=== PATIENT | female | born 1980 | race Two or more races ===

== ENCOUNTER 2019-03-23 10:15 | Emergency (ER) | payer SELFPAY ==
[~2019-03-23] VITALS: Ht 154.9 cm; Wt 81.6 kg
[2019-03-23 10:26] VITALS: BP 112/75
[2019-03-23] MEDS ORDERED: Ketorolac 60mg Inj IM ONE (10:45)
[2019-03-23] MEDS ORDERED: IBUPROFEN600 MG ORAL (10:49)
[2019-03-23 11:00] VITALS: BP 125/76
--- NOTE | 2019-03-23 11:00 | NUR ---
ER DISCHARGE NOTE: Pt was seen due to lower backpain. Patient is cleared to be discharged per ERMD, pt is aox4, on room air, with stable vital signs. pt was given dc and prescription instructions, pt was able to verbalize understanding, pt id band removed . pt is able to ambulate with steady gait. pt took all belongings.
--- NOTE | 2019-03-23 11:03 | Emergency Room Report ---
History of Present Illness General Chief Complaint: Back Pain-No Injury Source: Patient Present Illness HPI Patient 39-year-old female presents after increased low back pain. Patient reports having gradual onset of low back pain. She reports having this for several weeks. Pain is worse with right-sided flexion. She denies any recent trauma. She denies any other similar symptoms in the past. She reports having this with some left-sided buttock discomfort. She denies any bowel or bladder dysfunction. She reports having normal urination as well as normal bowel movements. She states she is currently taking answer contraceptives. She denies any chest pain or shortness of breath. Allergies: Coded Allergies: No Known Allergies (Unverified , 03/23/19) Patient History Past Medical History: see triage record Last Menstrual Period: N/A Now: No : 10 Para: 6 Reviewed Nursing Documentation: PMH: Agreed; PSxH: Agreed Nursing Documentation-PM Past Medical History: No Stated History Hx Cardiac Problems: No - Hypercholesterolemia Review of Systems All Other Systems: negative except mentioned in HPI Physical Exam Vital Signs Date Time Temp Pulse Resp B/P (MAP) Pulse Ox O2 Delivery O2 Flow Rate FiO2 03/23/19 10:26 98.1 88 15 112/75 95 Room Air General Appearance: well appearing, no apparent distress, alert, GCS 15, Chronically Ill Head: normocephalic, atraumatic ENT: hearing grossly normal, normal voice Neck: full range of motion, supple Respiratory: lungs clear, normal breath sounds, no respiratory distress, speaking full sentences Cardiovascular #1: normal peripheral pulses, regular rate, rhythm Gastrointestinal: normal inspection, soft Musculoskeletal: digits/nails normal, gait/station normal, decreased range of mation, other - no spinal tenderness Neurologic: normal inspection, alert, oriented x3, responsive, 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 May need MRI if symptoms worsen. Return if worse. Santo Lundberg MD Mar 23, 2019 11:03
== END 2019-03-23 12:30 | disposition home or self-care (01) ==
LOC: EMR 12:14
DX: M54.5 Low back pain (principal); E78.00 Pure hypercholesterolemia, unspecified
CPT/HCPCS: 96372; 99283

== ENCOUNTER 2020-03-02 12:26 | Emergency (ER) | payer MEDICAID ==
[~2020-03-02] VITALS: Ht 157.5 cm; Wt 77.1 kg
[~2020-03-02 12:26] MED LIST: IBUPROFEN600 MG ORAL
[2020-03-02 12:40] VITALS: BP 124/75
--- NOTE | 2020-03-02 13:03 | Emergency Room Report ---
History of Present Illness General Chief Complaint: Dizziness Present Illness HPI 40-year-old female presents to the emergency department complaining of progressive lethargy with intermittent palpitations and anxiousness. Patient is also reporting transient episodes of dizziness that she described as imbalance when she gets up too quickly. She reports that the symptoms last no more than several seconds. Patient denies headache. She does report body aches. She reports only significant past medical history is high cholesterol. She denies night sweats or changes in weight. She denies visual changes, blurry vision, tinnitus, nausea or vomiting. She reports intermittent discomfort in her throat but denies pain. Patient reports sometimes "discomfort with swallowing " She denies inability to swallow. She denies cough, SOB, syncope or weakness. Pt. denies paresthesias. She denies fevers or chills. she denies CP. She denies abdominal pain, constipation or diarrhea. She does report a rash on her abdomen. She denies swelling of the lips or tongue. She denies vertigo. 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 Patient History Past Medical History: see triage record Past Surgical History: none Pertinent Family History: none Last Menstrual Period: 02/09/2020 Now: No Immunizations: UTD Reviewed Nursing Documentation: PMH: Agreed; PSxH: Agreed Nursing Documentation-PMH Hx Cardiac Problems: No - Hypercholesterolemia Review of Systems All Other Systems: negative except mentioned in HPI Physical Exam Vital Signs Date Time Temp Pulse Resp B/P (MAP) Pulse Ox O2 Delivery O2 Flow Rate FiO2 03/02/20 12:34 98.4 90 18 124/75 (91) 97 Room Air Sp02 EP Interpretation: reviewed, normal General Appearance: no apparent distress, alert, GCS 15, non-toxic Head: normocephalic, atraumatic Eyes: bilateral eye normal inspection, bilateral eye PERRL, bilateral eye other - no photophobia ENT: hearing grossly normal, normal voice Neck: full range of motion Respiratory: chest non-tender, lungs clear, normal breath sounds, no respiratory distress, no accessory muscle use, no wheezing, speaking full sentences Cardiovascular #1: regular rate, rhythm, no edema, normal capillary refill Gastrointestinal: normal bowel sounds, non tender, soft, no peritonitis, non- distended, no guarding, other - several excoriated papules on the abdomen in the umbillical area, no surrounding erythema, no blisters or vesicles Rectal: deferred Genitourinary: normal inspection, no CVA tenderness Musculoskeletal: back normal, normal range of motion, gait/station normal, non- tender Neurologic: alert, motor strength/tone normal, oriented x3, sensory intact, responsive, speech normal, normal gait, no pronator, grossly normal, no focal defects, other - no nystagmus Psychiatric: judgement/insight normal Skin: rash - several excoriated papules on the abdomen in the umbillical area, no surrounding erythema, no blisters or vesicles Lymphatic: no adenopathy Medical Decision Making PA Attestation Dr. Rosenbaum is my supervising Physician whom patient management has been discussed with. Diagnostic Impression: Primary Impression: Orthostatic dizziness Additional Impression: Mild dehydration ER Course 40-year-old female presents to the emergency department complaining of progres sive lethargy with intermittent palpitations and anxiousness. Patient is also reporting transient episodes of dizziness that she described as imbalance when she gets up too quickly. She reports that the symptoms last no more than several seconds. Patient denies headache. She does report body aches. She reports only significant past medical history is high cholesterol. She denies night sweats or changes in weight. She denies visual changes, blurry vision, tinnitus, nausea or vomiting. She reports intermittent discomfort in her throat but denies pain. Patient reports sometimes "discomfort with swallowing " She denies inability to swallow. She denies cough, SOB, syncope or weakness. Pt. denies paresthesias. She denies fevers or chills. she denies CP. She denies abdominal pain, constipation or diarrhea. She does report a rash on her abdomen. She denies swelling of the lips or tongue. She denies vertigo. Ddx considered but are not limited to Mnire's, BPPV, labrinitis, cerebellar stroke, hypovolemia, cardiac cause. Vital signs: are WNL, pt. is afebrile H&PE are most consistent with :orthostatic dizziness, will assess, and do basic labs and ekg. Pt. nontoxic in appearance and in no acute distress. No focal deficit to indicate TIA or CVA. No vertical nystagmus. Better after IV fluid . Because of lack of focality and red flags, I see no need for CT scan. ORDERS: - CBC: WNL -BMP: WNL -EK NSR -UA: Most indicative of contamination: presence of equal amounts of bacteria and squamous cells, no elevation in inflammatory markers, nitrite negative. Will await reflux culture report -Hcg: negative - TSH: WNL - Free T3/T4: WNL -Orthostatic VS: HR increased 20 BPM from sitting position. BP did not decrease ED INTERVENTIONS: NS IV Fluid Bolus. -I do not identify an emergent condition at this time. With current presentation, pt. is stable for close outpatient follow up and conservative treatment. D/w pt. to return promptly to ED with worsening or new symptoms.- Pt. verbalizes' understanding and agreement with proposed treatment plan. d/w pt. need to increase oral fluid intake especially with hotter weather. Pt. admits to not regularly drinking water. DISCHARGE: At this time pt. is stable for d/c to home. Will provide printed patient care instructions, and any necessary prescriptions. Care plan and follow up instructions have been discussed with the patient prior to discharge. Labs Test 03/02/20 13:01 White Blood Count 9.6 K/UL (4.8-10.8) Red Blood Count 4.41 M/UL (4.20-5.40) Hemoglobin 13.2 G/DL (12.0-16.0) Hematocrit 40.0 % (37.0-47.0) Mean Corpuscular Volume 91 FL (80-99) Mean Corpuscular Hemoglobin 29.9 PG (27.0-31.0) Mean Corpuscular Hemoglobin Concent 33.0 G/DL (32.0-36.0) Red Cell Distribution Width 13.1 % (11.6-14.8) Platelet Count 362 K/UL (150-450) Mean Platelet Volume 8.0 FL (6.5-10.1) Neutrophils (%) (Auto) 60.6 % (45.0-75.0) Lymphocytes (%) (Auto) 31.4 % (20.0-45.0) Monocytes (%) (Auto) 5.6 % (1.0-10.0) Eosinophils (%) (Auto) 1.6 % (0.0-3.0) Basophils (%) (Auto) 0.8 % (0.0-2.0) Urine Color Yellow Urine Appearance Slightly cloudy Urine pH 6 (4.5-8.0) Urine Specific Bullock 1.015 (1.005-1.035) Urine Protein Negative (NEGATIVE) Urine Glucose (UA) Negative (NEGATIVE) Urine Ketones Negative (NEGATIVE) Urine Blood Negative (NEGATIVE) Urine Nitrite Negative (NEGATIVE) Urine Bilirubin Negative (NEGATIVE) Urine Urobilinogen Normal MG/DL (0.0-1.0) Urine Leukocyte Esterase 1+ (NEGATIVE) Urine RBC 0-2 /HPF (0 - 2) Urine WBC 0-2 /HPF (0 - 2) Urine Squamous Epithelial Cells Few /LPF (NONE/OCC) Urine Bacteria Occasional /HPF (NONE) Urine HCG, Qualitative Negative (NEGATIVE) Sodium Level 139 MMOL/L (136-145) Potassium Level 3.7 MMOL/L (3.5-5.1) Chloride Level 104 MMOL/L (98-107) Carbon Dioxide Level 27 MMOL/L (21-32) Anion Gap 9 mmol/L (5-15) Blood Urea Nitrogen 8 mg/dL (7-18) Creatinine 0.9 MG/DL (0.55-1.30) Estimat Glomerular Filtration Rate > 60 mL/min (>60) Glucose Level 93 MG/DL (74-106) Calcium Level 8.8 MG/DL (8.5-10.1) Thyroid Stimulating Hormone (TSH) 1.629 uiU/mL (0.358-3.740) Free Thyroxine 1.11 NG/DL (0.76-1.46) Free Triiodothyronine 2.6 pg/mL (2.3-4.2) EKG Diagnostic Results Troponin ordered: No EKG Time: 12:49 Rate: normal - 88BPM Rhythm: NSR ST Segments: no acute changes ASA given to the pt in ED: No PA Scribe Text This Interpretation was scribed by SHIRA Key. Last Vital Signs Date Time Temp Pulse Resp B/P (MAP) Pulse Ox O2 Delivery O2 Flow Rate FiO2 03/02/20 12:40 98.4 82 18 124/75 97 Room Air Disposition: HOME, SELF-CARE Condition: Stable Referrals: [facility] Patient Instructions: Dehydration, Adult, Dizziness, [id number] Additional Instructions: Take medications as directed. Follow up with a Primary Care Provider in 3-5 days, even if your symptoms have resolved. --Please review list of primary care clinics, if you do not already have a primary care provider Return sooner to ED if new symptoms occur, or current symptoms become worse. - Please note that this Emergency Department Report was dictated using [employer] room supervisor technology software, occasionally this can lead to erroneous entry secondary to interpretation by the dictation equipment. Sharmila Key Mar 02, 2020 13:03
[2020-03-02 13:13] VITALS: BP_SYST 126; BP_SYST 136; BP_SYST 142; BP_DIAS 78; BP_DIAS 85
[2020-03-02 13:20] LABS: BASOPHILS % (AUTO) 0.8 % (0.0-2.0); EOSINOPHILS % (AUTO) 1.6 % (0.0-3.0); HEMOGLOBIN 13.2 G/DL (12.0-16.0); LYMPHOCYTES % (AUTO) 31.4 % (20.0-45.0); MEAN CORPUSCULAR VOLUME 91 FL (80-99); MONOCYTES % (AUTO) 5.6 % (1.0-10.0); NEUTROPHILS % (AUTO) 60.6 % (45.0-75.0); PLATELET COUNT 362 K/UL (150-450); RED BLOOD COUNT 4.41 M/UL (4.20-5.40); RED CELL DISTRIBUTION WIDTH 13.1 % (11.6-14.8); WHITE BLOOD COUNT 9.6 K/UL (4.8-10.8)
[2020-03-02 13:21] LABS: APPEARANCE,URINE SLIGHTLY CLOUDY; BILIRUBIN, URINE NEGATIVE (NEGATIVE); COLOR,URINE YELLOW; GLUCOSE, URINE (UA) NEGATIVE (NEGATIVE); KETONES,URINE NEGATIVE (NEGATIVE); LEUKOCYTE ESTERASE ,URINE 1+ (NEGATIVE); NITRITE,URINE NEGATIVE (NEGATIVE); PH,URINE 6 (4.5-8.0); PROTEIN,URINE NEGATIVE (NEGATIVE); UROBILINOGEN,URINE NORMAL MG/DL (0.0-1.0)
[2020-03-02 13:25] LABS: ANION GAP 9 mmol/L (5-15); BLOOD UREA NITROGEN 8 mg/dL (7-18); CALCIUM 8.8 MG/DL (8.5-10.1); CARBON DIOXIDE 27 MMOL/L (21-32); CHLORIDE 104 MMOL/L (98-107); CREATININE 0.9 MG/DL (0.55-1.30); POTASSIUM 3.7 MMOL/L (3.5-5.1); SODIUM 139 MMOL/L (136-145)
[2020-03-02 14:30] VITALS: BP 142/85
--- NOTE | 2020-03-03 15:32 | Cardiology Report ---
APPROVED REPORT EKG Measurement Heart [id number] <Conclusion> Normal sinus rhythm Possible Left atrial enlargement Borderline ECG
== END 2020-03-02 14:30 | disposition home or self-care (01) ==
LOC: EMR 13:23
DX: R42 Dizziness and giddiness (principal); E86.0 Dehydration; E78.00 Pure hypercholesterolemia, unspecified
CPT/HCPCS: 36415; 80048; 81003; 81025; 84439; 84443; 84481; 85025; 93005; J7040; Z7502; 99284